=== PATIENT | female | born 1985 | race Caucasian/White ===

== ENCOUNTER → 2018-12-08 19:09 | Observation (INO) ==
[2018-12-08 17:48] LABS: Bilirubin,Urine Negative (Negative); Blood,Urine Moderate (Negative); Clarity,Urine Cloudy (Clear); Color,Urine Yellow (Yellow); Glucose,Urine (UA) Normal (Normal); Ketones,Urine Negative (Negative); Leukocyte Esterase,Urine Large (Negative); Nitrite,Urine Negative (Negative); Protein,Urine Negative (Neg-Trace); Urobilinogen,Urine Normal (Normal)
[2018-12-08 17:50] LABS: Bacteria,Urine Few per hpf (None-Few); Hyaline Casts,Urine None Seen per lpf (None-Few); Squamous Epithelial Cell,Urine Many per lpf (None-Few); WBC,Urine 50-100 per hpf (0-3)
[2018-12-08 17:57] LABS: Amphetamine Screen,Urine Negative ng/mL (Cutoff=1000); Barbiturate Screen,Urine Negative ng/mL (Cutoff=200); Benzodiazepines Screen,Urine Negative ng/mL (Cutoff=200); Cannabinoid Screen,Urine Negative ng/mL (Cutoff = 50); Cocaine Screen,Urine Negative ng/mL (Cutoff= 300); Opiate Screen,Urine Negative ng/mL (Cutoff=300); Phencyclidine Screen,Urine Negative ng/mL (Cutoff=25)
--- NOTE | 2018-12-08 19:09 | OB/GYN Progress Note ---
Date of Encounter: 12/08/18 Time of Encounter: 19:08 - Assessment and Plan (1) 37 weeks gestation of Current Visit: Yes Status: Acute (2) Decreased movement Current Visit: Yes Status: Acute Patient feeling adequate movement in triage. Reactive NST. Cervical exam unchanged from office visit. Discussed with Dr. Shepard and discussed UA results. Decision made to discharge patient home on Keflex twice a day 7 days. Patient in agreement with plan Qualifiers: Fetus number: single or unspecified fetus Trimester: third trimester Qualified Code(s): O36.8130 - Decreased movements, third trimester, not applicable or unspecified (3) UTI (urinary tract infection) in in third trimester Current Visit: Yes Status: Acute Discharge home with prescription for Keflex Subjective - Subjective Interval history: 37+ weeks gestation presents to triage with complaints of lower abdominal pain and decreased movement. Patient states she has not fell as much movement is over the last couple days. She started to have some lower abdominal pain and pressure. Reports slight vaginal bleeding when wiping since last cervical exam. Denies leaking of fluid Antepartum ROS: vaginal bleeding, movement normal, other, no loss of fluid Objective - Vital Signs Vital Signs: Intake and Output 12/08/18 12/08/18 12/08/18 07:59 15:59 23:59 Other: Weight 120.8 kg Patient Weight 12/08/18 23:59 Weight 120.8 kg - Exam FHR: auscultation normal FHR comments: Baseline 130 Abdomen: Present: soft, gravid Cervical dilation: 12/50/-2 - Labs Labs: Abnormal lab results Urine Clarity Cloudy (Clear) A 12/08/18 15:44 Urine Blood Moderate (Negative) H 12/08/18 15:44 Ur Leukocyte Esterase Large (Negative) H 12/08/18 15:44 Urine Microscopic RBC 3-5 per hpf (0-3) H 12/08/18 15:44 Urine Microscopic WBC 50-100 per hpf (0-3) H 12/08/18 15:44 Ur Squamous Epith Cells Many per lpf (None-Few) H 12/08/18 15:44 Ur Culture Indicated? YES (NO) A 12/08/18 15:44
== END | disposition home or self-care (01) ==
LOC: 1NENULAB
PROVIDERS: ADMIT Obstetrics & Gynecology; ATTEND Obstetrics & Gynecology

== ENCOUNTER 2018-12-12 21:59 | Inpatient (IN) ==
[2018-12-12] MEDS ORDERED: Lidocaine 1% 20 ML MDV INFILT PRN (22:04)
[2018-12-12] MEDS ORDERED: Famotidine 20 MG/2 ML VIAL IVP PRN (22:04)
[2018-12-12] MEDS ORDERED: Metoclopramide 10 MG/2 ML VIAL IVP PRN (22:04)
[2018-12-12] MEDS ORDERED: *HR* Nalbuphine 10 MG/ML AMPUL IVP PRN (22:04)
[2018-12-12] MEDS ORDERED: Ondansetron 4 MG/2 ML VIAL IVP PRN (22:04)
[2018-12-12] MEDS ORDERED: Naloxone 0.4 MG/ML INJ IVP PRN (22:04)
[2018-12-12 22:36] LABS: Basophils % 0.3 %; Eosinophils # 0.1 K/mcL (0.0-0.6); Hematocrit 35.2 % (35.3-44.9); Immature Granulocytes % 0.8 % (0-4); Lymphocytes # 2.6 K/mcL (0.6-4.6); Lymphocytes % 19.4 %; Mean Corpuscular HGB Conc 34.1 g/dL (31.6-35.5); Mean Platelet Volume 9.9 fL (9.4-12.4); Monocytes # 1.2 K/mcL (0.0-1.3); Neutrophils # 9.2 K/mcL (1.6-8.9); Platelet Count 203 K/mcL (140-400); Red Cell Distribution Width 13.2 % (11.5-14.5); Segmented Neutrophils % 69.5 %; White Blood Count 13.2 K/mcL (4.3-11.1)
[2018-12-12 22:42] LABS: Amphetamine Screen,Urine Negative ng/mL (Cutoff=1000); Barbiturate Screen,Urine Negative ng/mL (Cutoff=200); Benzodiazepines Screen,Urine Negative ng/mL (Cutoff=200); Cannabinoid Screen,Urine Negative ng/mL (Cutoff = 50); Cocaine Screen,Urine Negative ng/mL (Cutoff= 300); Opiate Screen,Urine Negative ng/mL (Cutoff=300); Phencyclidine Screen,Urine Negative ng/mL (Cutoff=25)
--- NOTE | 2018-12-12 23:04 | OB/GYN History & Physical ---
Date of Encounter: 12/12/18 Time of Encounter: 22:59 Assessment and Plan (1) 38 weeks gestation of Current visit: Yes Status: Acute Admit for labor GBS negative Wait until midnight; if not stephie regularly will start cytotec, if stephie too frequently for cytotec will start pitocin May have epidural and/or nubain if wanted for pain control Anticipate vaginal delivery POC per consult with Dr Cantu (2) Amniotic fluid leaking Current visit: Yes Status: Acute History of Present Illness Chief complaint: Leaking of fluid HPI: Ms. Hemphill is a 32 year old at 38 week sand 2 days gestation that presents to triage with c/o leaking of fluid for 2 hours. She states positive movement. She denies headache, vision changes, and epigastric pain. She states she has been having irregular cramping. 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 The fetus also has bilateral renal pelvilectasis noted on ultrasound and has been followed serially on ultrasound. She states positive movement. She denies headaches, vision changes, epigastric pain, and vaginal bleeding. She has been seen by Dr Shepard for her care. Labs: GBS negative HIV NR T Pal Neg Hep B NR Varicella Positive Rubella Positive Blood type B+ Past Med Surg Social Fam HX - Past Medical History Medical history: other Additional medical history: Abnormal pap smear that will need checked after delivery Psychiatric history: no psych history - Past Surgical History Surgical History: cholecystectomy Additional surgical history: Laura 2000 - Social History Smoking Status: Former smoker Smokeless Tobacco Status: No Alcohol use: none Drug use: none - Family History Mother Living Status: Still Living Hx Family Cardiac Disorders: No Hx Family Respiratory Disorders: No Hx Family Cancer: Yes (Non-Hodgkins Lymphoma) Hx Family GI Disorders: No Hx Family Genitourinary Disorders: No Hx Family Endocrine Disorder: No Hx Family Musculoskeletal Disorders: No Hx Family Neuromuscular Disorders: No Hx Family Neurologic Disorders: No Hx Family HEENT Disorders: No Hx Family Autoimmune Disorders: No Hx Family Reproductive Disorders: No Hx Family Psychosocial Disorders: No Hx Family Medical Disorders: No Obstetrical History - Pregnancies : 6 Para: 5 Term: 4 : 1 Ab's: 1 Livin Medications and Allergies Calcium Carbonate [Tums] 2 tab PO TID 12/08/18 [History] Magnesium Citrate 1 cap PO DAILY 12/08/18 [History] 19 Tablet 1 tab PO DAILY 12/08/18 [History] cephALEXin [Keflex] 500 mg PO BID #14 capsule 12/08/18 [Rx] Allergy/AdvReac Type Severity Reaction Status Date / Time NSAIDS (Non-Steroidal Allergy Hives Verified 12/12/18 22:15 Anti-Inflamma Review of System OB All systems PM: reviewed and no additional remarkable complaints except as stated Exam - Constitutional Constitutional: well developed, well nourished, no acute distress, average body habitus - HEENT HEENT: Normocephaly, Mucus Membranes Moist - Lungs Respiratory exam: CTAB - Cardiovascular Cardiovascular exam: RRR, +S1, +S2 - Abdomen Abdomen: Present: bowel sounds normal, gravid, non tender - Extremities Extremities exam: normal capillary refill, normal inspection, radial pulses palpable and symmetrical Deep Tendon Reflex Grade: 2+ Normal - Vulva Vulva: bilateral: normal - Vagina Vagina: Present: normal moisture - Cervix Dilation: 2 Effacement: 50 Station: -1 - Uterus Uterus exam: Present: normal size, normal contour - Anus/Rectum Anus/Rectum: Present: normal perianal skin - Comments Comments: FHTs Baseline 130 moderate variability with 15 x 15 accels and no decels Irregular ctx Results Result Diagrams: 12/12/18 22:06 Abnormal lab results WBC 13.2 K/mcL (4.3-11.1) H 12/12/18 22:06 Hct 35.2 % (35.3-44.9) L 12/12/18 22:06 Neutrophils # 9.2 K/mcL (1.6-8.9) H 12/12/18 22:06 All other labs normal. - VTE Reasons for not Prescribing Prophylaxis: Treatment not Indicated - Low risk for VTE
[2018-12-12] MEDS ORDERED: miSOPROStol 25 MCG TABLET PO PRN (23:13)
[2018-12-12] MEDS ORDERED: Oxytocin 20 units/ LR 1000 mL 20 UNIT/1,000 ML BAG IVC SCH (23:15)
[2018-12-13] MEDS: Ringers Solution, Lactated 1,000 ML IVC SCH ×2 (05:02→18:30)
[2018-12-13] MEDS ORDERED: Azithromycin 500 MG in D5% in Water 250 ML IVPB ONE (05:42)
--- NOTE | 2018-12-13 06:31 | OB Labor Progress Note ---
Date of Encounter: 12/13/18 Time of Encounter: 06:28 Labor Progress Note - Subjective Subjective: Patient states contractions are painful, but tolerable at this point. Will consider epidural when they get stronger. - Vital Signs Vital Signs: VSS - Cervix Cervix: 2-3/50/-2 - Heart Tones Heart Tones: 130 moderate variability with 15 x 15 accels no decels - Hendricks Hendricks: Contractions every 2-3 minutes; palpate moderate - Plan Plan: Continue routine labor management GBS negative Titrate pitocin for adequate labor; currently infusing at 2mu/min May have epidural upon request Anticipate vaginal delivery POC per consult with Dr Cantu
[2018-12-13] MEDS ORDERED: Ropivacaine/PF 0.2% 20 ML VIAL ONE ×2 (07:38→16:03)
[2018-12-13] MEDS ORDERED: *HR* FentaNYL (PF) 100 MCG/2 ML VIAL ONE (07:38)
[2018-12-13] MEDS ORDERED: Epidural Premix (fent/bupiv) 110 ML EP ONE (07:47)
--- NOTE | 2018-12-13 08:37 | Anesthesia Evaluation PreOp ---
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: Denies Any Significant HX Other Medical History: Denies Any Significant HX Anesthesia History: No Prior Anesthetic Complications, Past Anesthesia : Yes (39wks, ) Alcohol Use: none Drug use: none Medications and Allergies Calcium Carbonate [Tums] 2 tab PO TID 12/08/18 [History] Magnesium Citrate 1 cap PO DAILY 12/08/18 [History] 19 Tablet 1 tab PO DAILY 12/08/18 [History] cephALEXin [Keflex] 500 mg PO BID #14 capsule 12/08/18 [Rx] Allergy/AdvReac Type Severity Reaction Status Date / Time NSAIDS (Non-Steroidal Allergy Hives Verified 12/12/18 22:15 Anti-Inflamma - Meds/Allergy Pre-op Review Medications Reviewed: Yes Allergies Reviewed: Yes Beta Blockers on Current Med List: No Anesthesia Results - Labs 12/12/18 22:06 Anesthesia Exam O2 Sat Height 1.68 m Weight 121.1 kg Height: 66 Weight: 266 - HEENT Pupil (Motor): Pupils equal Mallampati: II Teeth: Normal - LEAD PERFORMANCE SUPPORT ANALYST LOC: Oriented LEAD PERFORMANCE SUPPORT ANALYST Motor: Normal RUE, Normal LUE, Normal RLE, Normal LLE, Normal Face LEAD PERFORMANCE SUPPORT ANALYST Sensory: Normal: RUE, LUE, RLE, LLE, Face - Cardiac Rhythm: Regular Murmur: None JVD: No Carotid Bruit: No - Pulmonary Breath Sounds: bilateral Clear Respiratory Effort: Symmetrical Anesthesia Assess/Plan ASA Score: 2 Level of consciousness: Cooperative Anesthetic Plan: Epidural Monitoring Plan: Standard Monitors Recovery Plan: PACU
--- NOTE | 2018-12-13 08:41 | Anesthesia Procedures ---
Date of Encounter: 12/13/18 Time of Encounter: 07:55 (procedure end time 0840) Procedures: Anesthesia - Epidural/Spinal Patient ID/Chart reviewed: Yes Patient examined: Yes OB Eval: : 6 OB Eval: Hx Para: 4 OB Eval: Contractions: Non-stressed pattern Supplemental Oxygen: None/Room Air Site Prep: Aseptic Technique Patient position: upright Local Anesthetic: Lidocaine 1% Touhy Needle Gauge: 18 Touhy Needle Depth (cm): 9 Catheter Depth at Skin (cm): 15 Test Dose (1.5% Lido + Epi): Volume given (mls): 3 Test Dose Result: Negative Loading Dose: Fentanyl (mcg): 100 Loading Dose: Other: 6ml 0.2 Loading Dose Administered: Thru Touhy Needle (0.2% ropivicaine) Infusion Med: 0.125% Bupivacaine w/ 2 mcg/ml Fentanyl Infusion Rate (mls/hr): [address]: Tegaderm Interspace Used: L3-L4 Loss of Resistance (BLANCA): Yes Blood: No CSF: No Paresthesia: No Procedure: Strict asepsis, good blanca at 9cm, bolus thru needle, catherter to 15cm. No parasthesias, no heme, no csf. Vs per RN
[2018-12-13] MEDS ORDERED: Epidural Premix (fent/bupiv) 110 ML EP SCH (08:45)
[2018-12-13] MEDS ORDERED: Penicillin G Potassium 5,000,000 UNIT in 0.9 % Sodium Chloride Mini Bag 100 ML IVPB ONE (10:27)
--- NOTE | 2018-12-13 10:33 | OB Labor Progress Note ---
Date of Encounter: 12/13/18 Time of Encounter: 10:30 Labor Progress Note - Subjective Subjective: Comfortable with epidural - Cervix Cervix: 3-4/50/-2 - Heart Tones Heart Tones: 135/moderate/+accels/early and variable - [place]: 3-4 - Plan Physician notified: No Plan: Continue pitocin per policy start PCN for GBS due to previous with pneumonia and was GBS positive frequent repositioning anticipate
[2018-12-13] MEDS: Penicillin G Potassium 2,500,000 UNIT in 0.9 % Sodium Chloride 100 ML IVPB SCH ×2 (14:17→20:19)
--- NOTE | 2018-12-13 14:41 | OB Labor Progress Note ---
Date of Encounter: 12/13/18 Time of Encounter: 14:38 Labor Progress Note - Subjective Subjective: comfortable with epidural - Vital Signs Vital Signs: BP 108/68 pulse 64, has had bradycardia in the 50s - Cervix Cervix: 4/80/-2 asynclitic - Heart Tones Heart Tones: On 30/moderate/plus accelerations/- decelerations - [place]: 14 - Interventions Interventions: IUPC placed, no resistance felt on placement, when removing injures introducer after advancing IUPC dark red blood noted filling introducer. No more bleeding seen after. Patient cleaned in a pad placed under patient for monitoring. - Plan Physician notified: Yes Physician notified details: Notified of IUPC placement Plan: Continue Pitocin per policy Frequent repositioning Continue penicillin Anticipate
--- NOTE | 2018-12-13 15:25 | OB Labor Progress Note ---
Date of Encounter: 12/13/18 Time of Encounter: 15:22 Labor Progress Note - Cervix Cervix: 4/80/-2 - Heart Tones Heart Tones: 135/moderate/-accels/variable - Interventions Interventions: Pt continued to have bleeding noted on clean chux, IUPC replaced, again without resistance, but bleeding noted in introducer tube on during insertion. Dr. Cobb notified and reviewed tracing. Tacysystole noted pitocin ordered to decrease to 4 - Plan Physician notified: Yes
--- NOTE | 2018-12-13 20:06 | OB Labor Progress Note ---
Date of Encounter: 12/13/18 Time of Encounter: 20:04 Labor Progress Note - Subjective Subjective: comfortable epidural - Cervix Cervix: 4/80/-3 - Heart Tones Heart Tones: 130/moderate/+accels/variable - [place]: 2-3 - Plan Physician notified: Yes Physician notified details: notified of bleeding and passed clot and no cervical chance since start of shift. POC reviewed Plan: Continue pitocin per policy Frequent repositioning changes with peanut ball PCN for GBS Anticipate
--- NOTE | 2018-12-14 00:17 | OB/GYN Procedure Note ---
Delivery - Delivery Date: 12/14/18 Provider: Tisha Cobb Intrapartum events: prolonged labor- > = 20hr Delivery induction: oxytocin Delivery monitor: external FHT, external uterine, internal FHT, internal uterine Anesthesia: epidural Quantitated Blood Loss: 200 - (s) A Delivery Date: 12/14/18 Infant Delivery Time: 00:00 Presentation: vertex Position: FELISA Route of delivery: Gender: Female Viability: Viable Pounds: 6 Ounces: 2 Weight Gram: 2.78 kg at 1 minute: 7 at 5 mins: 9 Shoulder Dystocia: not encountered Placenta: spontaneous Cord: 3 umbilical vessels - Repair Episiotomy: none Laceration Description: Periurethral (Bilateral unrepaired) - Complications Delivery complications: none Delivery comments: Patient complete and pushing with one contraction after variable decels with a spontaneous vaginal delivery of a vigorous female infant weighing 6 lbs. 2 oz. with Apgars of 7 at 1 minute and 9 at 5 minutes. Patient was placed skin to skin on the maternal abdomen. Cord was clamped and cut after pulsation ceased. Placenta was delivered spontaneous and intact. Three-vessel cord noted. There were superficial periurethral lacerations which were hemostatic and not repaired. No other vaginal or perineal lacerations identified. Estimated blood loss 200 mL, complications none. Both mother and infant were recovering in stable condition in the LDR. - Disposition Mom disposition: stable in LDR disposition: stable in LDR
[2018-12-14] MEDS ORDERED: Oxytocin 20 units/ LR 1000 mL 20 UNIT/1,000 ML BAG IVC SCH (03:07)
[2018-12-14] MEDS ORDERED: Benzocaine/Menthol 56 GM AEROSOL SPRAY TP PRN (03:07)
[2018-12-14] MEDS ORDERED: Ibuprofen 600 MG TABLET PO PRN (03:07)
[2018-12-14] MEDS ORDERED: Acetaminophen 325 MG TABLET PO PRN (03:07)
[2018-12-14 05:44] LABS: Basophils % 0.2 %; Eosinophils # 0.1 K/mcL (0.0-0.6); Eosinophils % 0.5 %; Hematocrit 33.6 % (35.3-44.9); Hemoglobin 11.3 g/dL (11.5-15.4); Immature Granulocytes % 0.5 % (0-4); Lymphocytes # 1.4 K/mcL (0.6-4.6); Lymphocytes % 9.3 %; Mean Corpuscular HGB Conc 33.6 g/dL (31.6-35.5); Mean Corpuscular Volume 89.1 fL (83.0-100.0); Mean Platelet Volume 10.2 fL (9.4-12.4); Monocytes % 6.7 %; Neutrophils # 12.3 K/mcL (1.6-8.9); Platelet Count 175 K/mcL (140-400); Red Blood Count 3.77 M/mcL (3.82-4.97); Red Cell Distribution Width 13.2 % (11.5-14.5); Segmented Neutrophils % 82.8 %; White Blood Count 14.8 K/mcL (4.3-11.1)
[2018-12-14] MEDS: Prenatal Vit/FA 1 EACH TABLET PO SCH (08:14)
[2018-12-14] MEDS: Acetaminophen 325 MG TABLET PO PRN ×2 (14:36→20:37)
--- NOTE | 2018-12-15 01:49 | Discharge Summary ---
Date of Encounter: 12/15/18 Time of Encounter: 01:47 - Discharge Diagnosis (1) Vaginal delivery Priority: Primary Status: Acute Comments: Patient meeting day one milestones. Pain well-controlled with prescribed medications. Voiding without difficulty, tolerating regular diet, bleeding light. No bowel movement yet. Anticipate discharge today (2) Breast feeding status of mother Priority: Secondary Status: Acute Comments: support as needed. Patient states she has a breast pump at home. - Discharge Medications Prescriptions: New Acetaminophen [Tylenol] 650 mg PO Q6HR PRN tablet PRN Reason: Analgesia Benzocaine/Menthol [place] [Dermoplast [place]] 1 appl TP QID PRN aerosol PRN Reason: See Comments Docusate [Colace] 100 mg PO BID #60 capsule Continued 19 Tablet 1 tab PO DAILY Magnesium Citrate 1 cap PO DAILY Calcium Carbonate [Tums] 2 tab PO TID cephALEXin [Keflex] 500 mg PO BID #14 capsule Home Medications: Calcium Carbonate [Tums] 2 tab PO TID 12/08/18 [History] Magnesium Citrate 1 cap PO DAILY 12/08/18 [History] 19 Tablet 1 tab PO DAILY 12/08/18 [History] cephALEXin [Keflex] 500 mg PO BID #14 capsule 12/08/18 [Rx] Acetaminophen [Tylenol] 650 mg PO Q6HR PRN tablet 12/15/18 [Rx] Benzocaine/Menthol [place] [Dermoplast [place]] 1 appl TP QID PRN aerosol 12/15/18 [Rx] Docusate [Colace] 100 mg PO BID #60 capsule 12/15/18 [Rx] Allergies/Adverse Reactions: Allergy/AdvReac Type Severity Reaction Status Date / Time ibuprofen [From Motrin] Allergy Hives Verified 12/14/18 08:04 NSAIDS (Non-Steroidal Allergy Hives Verified 12/14/18 08:04 Anti-Inflamma Data Procedures and tests throughout hospitalization: Laboratory Tests 12/12/18 12/12/18 12/14/18 22:06 22:06 05:08 WBC 13.2 H 14.8 H RBC 4.00 3.77 L Hgb 12.0 11.3 L Hct 35.2 L 33.6 L MCV 88.0 89.1 MCH 30.0 30.0 MCHC 34.1 33.6 RDW 13.2 13.2 Plt Count 203 175 MPV 9.9 10.2 Immature Gran % 0.8 0.5 Seg Neutrophils % 69.5 82.8 Lymphocytes % 19.4 9.3 Monocytes % 9.0 6.7 Eosinophils % 1.0 0.5 Basophils % 0.3 0.2 Neutrophils # 9.2 H 12.3 H Lymphocytes # 2.6 1.4 Monocytes # 1.2 1.0 Eosinophils # 0.1 0.1 Basophils # 0.0 0.0 Urine Opiates Screen Negative Ur Buprenorphine Scrn Negative Ur Barbiturates Screen Negative Ur Phencyclidine Scrn Negative Ur Amphetamines Screen Negative U Benzodiazepines Scrn Negative Urine Cocaine Screen Negative U Marijuana (THC) Screen Negative Ur Drug Screen Interp See Below Labs on day of discharge: Labs from last 24 hours 12/14/18 05:08 WBC 14.8 H RBC 3.77 L Hgb 11.3 L Hct 33.6 L MCV 89.1 MCH 30.0 MCHC 33.6 RDW 13.2 Plt Count 175 MPV 10.2 Immature Gran % 0.5 Seg Neutrophils % 82.8 Lymphocytes % 9.3 Monocytes % 6.7 Eosinophils % 0.5 Basophils % 0.2 Neutrophils # 12.3 H Lymphocytes # 1.4 Monocytes # 1.0 Eosinophils # 0.1 Basophils # 0.0 Date of admission: 12/12/18 22:04 Primary care physician: PCP NONE Discharging clinician: Lizbeth Rae Anticipated date of discharge: 12/15/18 - Patient Status Disposition: Home, Self-Care Condition: Good Functional capacity at discharge: independent ambulation Overall status at discharge: patient is progressing back to baseline - Discharge Instructions Follow Up With: NONE,PCP [Primary Care Provider] - - Diet and Activity Activity: resume usual activities as tolerated Diet: regular diet Hospital Course Reason for admission: rupture of membranes Delivery: Episiotomy: none Laceration: other (periurethral) Other procedures: none complications: none Discharge diagnosis: IUP at term delivered baby: female Hospital course: Delivery Date: 12/14/18 Provider: Tisha Cobb Intrapartum events: prolonged labor- > = 20hr Delivery induction: oxytocin Delivery monitor: external FHT, external uterine, internal FHT, internal uterine Anesthesia: epidural Quantitated Blood Loss: 200 - Infant (s) Infant A Delivery Date: 12/14/18 Infant Delivery Time: 00:00 Presentation: vertex Position: FELISA Route of delivery: Gender: Female Viability: Viable Pounds: 6 Ounces: 2 Weight Gram: 2.78 kg at 1 minute: 7 at 5 mins: 9 Shoulder Dystocia: not encountered Placenta: spontaneous Cord: 3 umbilical vessels - Repair Episiotomy: none Laceration Description: Periurethral (Bilateral unrepaired) - Complications Delivery complications: none Delivery comments: Patient complete and pushing with one contraction after variable decels with a spontaneous vaginal delivery of a vigorous female infant weighing 6 lbs. 2 oz. with Apgars of 7 at 1 minute and 9 at 5 minutes. Patient was placed skin to skin on the maternal abdomen. Cord was clamped and cut after pulsation ceased. Placenta was delivered spontaneous and intact. Three-vessel cord noted. There were superficial periurethral lacerations which were hemostatic and not repaired. No other vaginal or perineal lacerations identified. Estimated blood loss 200 mL, complications none. Both mother and were recovering in stable condition in the LDR. - Disposition Mom disposition: stable in LDR disposition: stable in LDR Time Attestation: Total time spent providing and/or coordinating discharge services: Time Spent: Less than 30 minutes Exam - Constitutional Vitals: Temp Pulse Resp BP Pulse Ox 98.3 F 64 16 121/73 96 12/14/18 20:00 12/14/18 20:00 12/14/18 20:00 12/14/18 20:00 12/14/18 20:00 General appearance IM: A&O X 3, pleasant, no acute distress, answers questions appropriately - Respiratory Respiratory exam: Present: CTAB. Absent: respiratory distress - Cardiovascular Cardiovascular exam IM: Present: RRR, +S1, +S2. Absent: irregular rhythm - GI/Abdominal GI/Abdominal exam IM: normal bowel sounds, soft Incision: dry - Rectal Rectal exam: deferred - External exam: normal external exam Uterine Tone: Firm Uterus Position: At Umbilicus, Midline - Extremities Exam Extremities exam IM: Present: full ROM, normal capillary refill, normal inspection. Absent: calf tenderness - Neurological Exam Neurological exam: alert, normal gait, oriented X3
[2018-12-15] MEDS: Acetaminophen 325 MG TABLET PO PRN ×2 (02:12→09:10)
[2018-12-15 08:15] VITALS: BP 122/75
[2018-12-15] MEDS: Prenatal Vit/FA 1 EACH TABLET PO SCH (09:10)
== END 2018-12-15 11:50 | disposition home or self-care (01) | DRG 807 ==
LOC: 1NENULAB → 1NENUOBS 12-14 03:05
PROVIDERS: ADMIT Advanced Practice Midwife; ATTEND Advanced Practice Midwife